=== PATIENT | male | born 1995 | race Caucasian/White ===

== ENCOUNTER 2017-12-06 21:40 | Emergency (ER) | payer OTHER ==
[2017-12-06] MEDS: PENICILLIN V POTASSIUM 500 MG TAB PO (23:04)
== END 2017-12-06 23:07 | disposition home or self-care (01) ==
LOC: M ED 21:40
DX: J02.9 Acute pharyngitis, unspecified (principal); Z72.0 Tobacco use
CPT/HCPCS: 87880

== ENCOUNTER 2018-07-16 13:47 | Emergency (ER) | payer OTHER ==
[~2018-07-16] VITALS: Ht 170.2 cm; Wt 70.8 kg
[~2018-07-16 13:47] MED LIST: PENI500T PO
--- NOTE | 2018-07-16 14:20 | REP ---
CT cervical spine without contrast HISTORY: Neck pain COMPARISON: None There is no acute fracture or subluxation. There is no disc bulge or herniation. The spinal canal and neural foramina are patent. The intervertebral discs and vertebral bodies are normal in height. IMPRESSION: There is no acute fracture or subluxation. Electronically Signed by Getachew Martino MD 07/16/2018 02:10 P
[2018-07-16] MEDS ORDERED: KETOROLAC 60 MG/2 ML VIAL (J1885) IM ONE (14:45)
[2018-07-16] MEDS ORDERED: CYCLOBENZAPRINE 10 MG TAB PO ONE (14:45)
--- NOTE | 2018-07-16 14:45 | REP ---
LEFT SHOULDER, THREE VIEWS: HISTORY: Pain. There is no acute fracture or dislocation. The joint spaces are normal in appearance. IMPRESSION: There is no acute fracture or dislocation. Electronically Signed by Getachew Martino MD 07/16/2018 02:51 P
[2018-07-16] MEDS ORDERED: NAPR-885 PO (14:53)
[2018-07-16] MEDS ORDERED: ROBA500T PO (14:54)
[2018-07-16 15:00] VITALS: BP 121/74
== END 2018-07-16 15:07 | disposition home or self-care (01) ==
LOC: M ED 13:47
DX: S49.92XA Unspecified injury of left shoulder and upper arm, initial encounter (principal); V43.53XA Car driver injured in collision with pick-up truck in traffic accident, initial encounter; Y92.410 Unspecified street and highway as the place of occurrence of the external cause; Y93.9 Activity, unspecified; Y99.9 Unspecified external cause status
CPT/HCPCS: 72125; 73030; 96372; 99283; J1885

== ENCOUNTER 2018-07-30 03:20 | Emergency (ER) | payer OTHER ==
[~2018-07-30] VITALS: Ht 170.2 cm; Wt 68.2 kg
[2018-07-30 03:20] VITALS: BP 133/70
[~2018-07-30 03:20] MED LIST changes: +NAPR-885 PO; +ROBA500T PO
[2018-07-30] MEDS ORDERED: LORazepam 0.5 MG TAB PO STA (03:56)
[2018-07-30 04:41] LABS: BASO % 0.2 % (0.0-1.0); EOS % 0.3 % (0.0-3.0); HEMATOCRIT 43.4 % (42.0-52.0); HEMOGLOBIN 14.6 g/dl (13.5-17.5); LYMPH # 1.2 10^3/uL (1.5-6.5); LYMPH % 10.2 % (24.0-44.0); MEAN CORPUSCULAR HEMOGLOBIN 29.1 pg (27.0-33.0); MEAN CORPUSCULAR HGB CONC 33.6 g/dl (32.0-36.5); MEAN CORPUSCULAR VOLUME 86.5 fl (80.0-96.0); MONO # 1.2 10^3/uL (0.0-0.8); MONO % 10.1 % (0.0-5.0); NEUTROPHILS # 9.1 10^3/uL (1.8-7.7); PLATELET COUNT, AUTOMATED 198 10^3/uL (150-450); RED BLOOD COUNT 5.02 10^6/uL (4.30-6.10); WHITE BLOOD COUNT 11.5 10^3/uL (4.0-10.0)
[2018-07-30 04:46] LABS: BLOOD UREA NITROGEN 14 MG/DL (7-18); CALCIUM LEVEL 8.7 MG/DL (8.5-10.1); CARBON DIOXIDE LEVEL 27 MEQ/L (21-32); CHLORIDE LEVEL 104 MEQ/L (98-107); CREATININE FOR GFR 1.05 MG/DL (0.70-1.30); GLUCOSE, FASTING 102 MG/DL (70-100); SODIUM LEVEL 141 MEQ/L (136-145)
--- NOTE | 2018-07-30 05:03 | REPVR ---
EXAM: XR Chest, 2 Views EXAM DATE/TIME: 07/30/18 (4:01am) CLINICAL HISTORY: 22 year old male with chest pain TECHNIQUE: XR of the chest, 2 views COMPARISON: No relevant prior studies available FINDINGS: Lungs: Unremarkable. No consolidation. Pleural space: Unremarkable. No pleural effusions. No pneumothorax. Heart/Mediastinum: Unremarkable. No cardiomegaly. Bones/joints: Unremarkable. IMPRESSION: No acute findings. Clear lung hernandez. Electronically signed by: Sussy Silva On 07/30/2018 05:03:01 AM
--- NOTE | 2018-07-31 10:30 | ECGEPIP ---
Stationary ECG Study [facility] - ED Test Date: 2018-07-30 Pat Name: VIDHYA OTTO Department: Room: - Gender: M Patient Registration Manager: : 1995 Requested By: DINORA Yen Order Number: [id number] Reading MD: Dariana Heart Measurements Intervals [place] Rate: 97 P: 40 [place]: 181 QRS: 15 QRSD: 97 T: 36 QT: 306 QTc: 389 Interpretive Statements SINUS RHYTHM POSSIBLE RIGHT VENTRICULAR CONDUCTION DELAY NONSPECIFIC T-WAVE ABNORMALITY NO PRIOR FOR COMPARISON Electronically Signed On 07-31-2018 10:30:41 EST by Dariana Heart
== END 2018-07-30 06:29 | disposition home or self-care (01) ==
LOC: M ED 03:20
DX: F41.1 Generalized anxiety disorder (principal); Z87.891 Personal history of nicotine dependence

== ENCOUNTER 2018-08-16 23:22 | Observation (INO) | payer OTHER ==
[~2018-08-16] VITALS: Ht 170.2 cm; Wt 67.6 kg
[2018-08-16] MEDS ORDERED: AMPICILLIN SOD/SULBACTAM SOD 3 GM in D5W MINI-BAG PLUS 100 ML IV ONE (23:45)
[2018-08-16] MEDS ORDERED: MORPHINE 10 MG/ML 1ML VIAL (J2270) IV ONE (23:45)
[2018-08-16] MEDS ORDERED: NS 1,000 ML IV ONE (23:45)
[2018-08-16] MEDS ORDERED: METOCLOPRAMIDE INJ 10MG/2ML VIAL (J2765) IV ONE (23:45)
[2018-08-17] MEDS ORDERED: ISOVUE-370 76% 100ML VIAL (Q9967) As Ordered ONE (00:08)
[2018-08-17 00:14] LABS: HEMATOCRIT 41.8 % (42.0-52.0); HEMOGLOBIN 14.1 g/dl (13.5-17.5); MEAN CORPUSCULAR HEMOGLOBIN 29.4 pg (27.0-33.0); MEAN CORPUSCULAR HGB CONC 33.7 g/dl (32.0-36.5); MEAN CORPUSCULAR VOLUME 87.3 fl (80.0-96.0); PLATELET COUNT, AUTOMATED 312 10^3/uL (150-450); RED BLOOD COUNT 4.79 10^6/uL (4.30-6.10)
[2018-08-17 00:18] LABS: BLOOD UREA NITROGEN 12 MG/DL (7-18); CALCIUM LEVEL 8.9 MG/DL (8.5-10.1); CARBON DIOXIDE LEVEL 29 MEQ/L (21-32); CHLORIDE LEVEL 107 MEQ/L (98-107); CREATININE FOR GFR 0.81 MG/DL (0.70-1.30); GLUCOSE, FASTING 85 MG/DL (70-100); POTASSIUM SERUM 4.2 MEQ/L (3.5-5.1); SODIUM LEVEL 142 MEQ/L (136-145)
[2018-08-17 00:43] LABS: ATYPICAL LYMPH 7 % (0-5); BASOPHILS 1 % (0-4); LYMPHOCYTES 29 % (16-52); MONOCYTES 8 % (0-8); NEUTROPHILS 55 % (35-75)
[2018-08-17 00:44] LABS: PLATELET ESTIMATE NORMAL (NORMAL)
[2018-08-17] MEDS ORDERED: dexameTHASONE 20 MG/5 ML VIAL (J1100) IV ONE (00:45)
--- NOTE | 2018-08-17 00:56 | REPVR ---
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 All CT scans at this facility use at least one of these dose optimization techniques: automated exposure control; mA and/or kV adjustment per patient size (includes targeted exams where dose is matched to clinical indication); or iterative reconstruction. Coronal and sagittal reformatted images were created and reviewed. CONTRAST: 75 ml of iso 370 administered intravenously. COMPARISON: CT Spine,cervical w/o contrast 07/16/2018 1:56 PM FINDINGS: Sinuses: Bilateral maxillary sinus mucosal thickening. Nasopharynx: Prominence of the adenoids. Oropharynx: Enlarged right tonsil with irregular low attenuation area centrally in toward the lateral aspect consistent with tonsillar abscess measuring approximately 2.2 x 1.4 x 2.3 cm. The epiglottis is normal. Larynx: There is some caudal edema to the level of the epiglottis, however, the piriform sinuses are adequately symmetric. Submandibular/Parotid glands: Normal. Glands are normal in size. Thyroid: Normal. No enlarged or calcified nodules. Lymph nodes: Normal. No lymphadenopathy. Lungs: Normal as visualized. Vasculature: No acute findings. Bones/joints: Normal. No acute fracture. Soft tissues: Metallic foreign body in the lateral left upper lip. IMPRESSION: 1. Enlarged right tonsil with tonsillar abscess along the posterolateral aspect measuring 2.2 x 1.4 x 2.3 cm which is new since 07/16/2018. 2. Enlarged adenoids which are increased since the prior study. 3. Metallic foreign body in the left upper lip. 4. Bilateral maxillary sinus disease. Electronically signed by: Jese Gaitan On 08/17/2018 00:55:56 AM
[2018-08-17] MEDS ORDERED: MORPHINE 2 MG/ML 1ML SYRINGE (J2270) IV ONE (01:00)
[2018-08-17] MEDS ORDERED: LIDOCAINE W/EPINEPHRINE 1% 20ML VIAL SC ONE (01:15)
[2018-08-17] MEDS ORDERED: APAP325T4 PO (02:22)
[2018-08-17] MEDS ORDERED: IBUP80TA PO (02:22)
[2018-08-17] MEDS: LR 1,000 ML IV SCH ×2 (03:30→17:38)
[2018-08-17 03:35] VITALS: BP 150/72
[2018-08-17] MEDS ORDERED: ACETAMINOPHEN TAB 650MG DOSE (2X325MG) PO PRN (05:00)
[2018-08-17] MEDS: AMPICILLIN SOD/SULBACTAM SOD 3 GM in D5W MINI-BAG PLUS 100 ML IV SCH ×4 (05:52→23:48)
[2018-08-17 08:00] VITALS: BP 124/61
[2018-08-17] MEDS: HYDROcodone/APAP LIQUID 7.5-325MG 15ML UDC (LORTAB ELIXIR) PO PRN ×3 (09:20→23:50)
[2018-08-17 12:00] VITALS: BP 128/70
[2018-08-17] MEDS ORDERED: dexameTHASONE 20 MG/5 ML VIAL (J1100) IV SCH (12:00)
[2018-08-17 16:00] VITALS: BP 128/66
[2018-08-17 20:00] VITALS: BP 135/63
[2018-08-18] VITALS: BP 129/65
[2018-08-18 04:00] VITALS: BP 108/55
[2018-08-18] MEDS: AMPICILLIN SOD/SULBACTAM SOD 3 GM in D5W MINI-BAG PLUS 100 ML IV SCH (06:45)
[2018-08-18 07:14] LABS: BASO % 0.1 % (0.0-1.0); HEMATOCRIT 36.3 % (42.0-52.0); HEMOGLOBIN 12.4 g/dl (13.5-17.5); LYMPH # 3.3 10^3/uL (1.5-6.5); LYMPH % 33.1 % (24.0-44.0); MEAN CORPUSCULAR HEMOGLOBIN 29.3 pg (27.0-33.0); MEAN CORPUSCULAR HGB CONC 34.2 g/dl (32.0-36.5); MEAN CORPUSCULAR VOLUME 85.8 fl (80.0-96.0); MONO % 10.1 % (0.0-5.0); NEUTROPHILS # 5.7 10^3/uL (1.8-7.7); NEUTROPHILS % 56.3 % (36.0-66.0); PLATELET COUNT, AUTOMATED 331 10^3/uL (150-450); RED BLOOD COUNT 4.23 10^6/uL (4.30-6.10)
[2018-08-18 08:11] VITALS: BP 107/53
[2018-08-18] MEDS: HYDROcodone/APAP LIQUID 7.5-325MG 15ML UDC (LORTAB ELIXIR) PO PRN (08:15)
--- NOTE | 2018-08-19 14:17 | IPN ---
DATE OF SERVICE: 08/18/2018 Subjectively, the patient is overall doing better. He is able to swallow and eat. He is handling his own secretions. Yesterday, he had incision and drainage to the right peritonsillar abscess under local in our office. He was on Unasyn and received Decadron. Swelling has gone down significantly compared to yesterday. OBJECTIVE FINDINGS: Temperature is 98.5 degrees Fahrenheit. The patient is able to open up his mouth wide. The incision and drainage site is healing nicely. No erythema around the site. Tonsil is much less inflamed compared to yesterday. Uvula is back to midline. There is much less exudate on the left tonsil, as well. White count is 10.0, hemoglobin is 12.4, hematocrit is 36.3. IMPRESSION: His right peritonsillar abscess is status post incision and drainage and is significantly improved. PLAN: This patient has been given prescriptions for the generic Lortab Elixir, which he had obtained yesterday. Also, for Augmentin 875 one twice a day for 10 days. He has been advised to consider having a yogurt or a lactobacillus capsule to try and prevent diarrhea. He has also been given a prescription for viscous lidocaine. He has also been given a followup appointment for our office for next week. At this point, he will be discharged, and he will followup with the previous appointment given to him by our office. This patient was observed for 24 hours short stay.
== END 2018-08-18 09:50 | disposition home or self-care (01) ==
LOC: M ED 23:22 → M ED INP 23:24 → INTOOBSV 08-17 01:40 → M ED INP 08-17 01:40 → UNDOADMOB 08-17 01:40 → M ED INP 08-17 03:24 → M PED 08-17 03:24 → UNDODISOB 08-18 09:50
PROVIDERS: ADMIT Otolaryngology; ATTEND Otolaryngology
DX: J36 Peritonsillar abscess (principal)
CPT/HCPCS: 36415; 70491; 80048; 85025; 87040; 87070; 87075; 87076; 87077; 87205; 87880; 96361; 96365; 96366; 96372; 96375; 96376; 99284; J1100; J2270; J2765; Q9967

== ENCOUNTER 2018-09-25 05:50 | Day surgery (SDC) | payer OTHER ==
[~2018-09-25] VITALS: Ht 172.7 cm; Wt 70.7 kg
[~2018-09-25 05:50] MED LIST changes: +APAP325T4 PO; +IBUP80TA PO
[2018-09-25] MEDS ORDERED: BUPIVACAINE HCL 0.25% 10 ML VIAL As Ordered ONE (06:31)
[2018-09-25] MEDS ORDERED: LIDOCAINE 1% MDV 20ML VIAL As Ordered ONE (06:32)
[2018-09-25] MEDS ORDERED: LIDOCAINE 2% INJ 100 MG/5 ML SDV (FOR ANES.) As Ordered ONE (07:14)
[2018-09-25] MEDS ORDERED: fentaNYL 250 MCG/5 ML INJECTION (J3010) As Ordered ONE (07:14)
[2018-09-25] MEDS ORDERED: MIDAZOLAM INJ 2 MG/2 ML VIAL (J2250) As Ordered ONE (07:14)
[2018-09-25] MEDS ORDERED: PROPOFOL 200 MG/20 ML VIAL As Ordered ONE (07:14)
[2018-09-25] MEDS ORDERED: ROCURONIUM BROMIDE 50 MG/5 ML VIAL As Ordered ONE (07:14)
[2018-09-25] MEDS ORDERED: dexameTHASONE 4 MG/ML 1ML VIAL (J1100) As Ordered ONE (07:38)
[2018-09-25] MEDS ORDERED: LR 1,000 ML IV ONE (07:45)
[2018-09-25] MEDS ORDERED: KETOROLAC 60 MG/2 ML VIAL (J1885) As Ordered ONE (07:49)
[2018-09-25] MEDS ORDERED: SUGAMMADEX SODIUM 500 MG/5 ML VIAL (BRIDION) As Ordered ONE (07:49)
[2018-09-25] MEDS ORDERED: ONDANSETRON 4MG/2ML VIAL (J2405) As Ordered ONE (07:49)
[2018-09-25] MEDS ORDERED: PERCOCET 5MG/325MG TAB As Ordered ONE (08:31)
[2018-09-25] MEDS ORDERED: fentaNYL 100 MCG/2 ML INJECTION (J3010) As Ordered ONE (08:31)
[2018-09-25] MEDS ORDERED: ONDANSETRON 4MG/2ML VIAL (J2405) IV PRN (09:00)
[2018-09-25] MEDS ORDERED: fentaNYL 100 MCG/2 ML INJECTION (J3010) IV PRN (09:00)
[2018-09-25] MEDS ORDERED: LR 1,000 ML IV SCH (09:00)
[2018-09-25] MEDS ORDERED: LIDOCAINE VISCOUS 2% SOLN 15ML UDC PO PRN (09:00)
[2018-09-25] MEDS ORDERED: PERCOCET 5MG/325MG TAB PO PRN (09:00)
[2018-09-25] MEDS ORDERED: METOCLOPRAMIDE INJ 10MG/2ML VIAL (J2765) IV PRN (09:00)
[2018-09-25 09:35] VITALS: BP 127/62
--- NOTE | 2018-09-25 11:38 | RO ---
DATE OF OPERATION: 09/25/2018 PREOPERATIVE DIAGNOSIS: History of right peritonsillar abscess and tonsil calculus. POSTOPERATIVE DIAGNOSIS: History of right peritonsillar abscess and tonsil calculus. OPERATION PERFORMED: Coblation tonsillectomy. SURGEON: Gerber Hernandez Jr., MD STITCHER UTILITY: ANESTHESIA: General via endotracheal tube by Fabian Alvarado, nurse photographic press screwmaker and Dr. Silva. INDICATIONS FOR PROCEDURE: Patient with a history of peritonsillar abscess. PROCEDURE IN DETAIL: The patient in supine position after being induced, intubated, prepped and draped in usual fashion, placed in the [place] position. A red rubber Kim was placed in the left nasal cavity and brought out through the oral cavity after a Vladimir Hemphill grooved tongue blade retractor was placed. Once this was done, the left tonsil was grasped with a curved tonsillar Allis clamp, dissected out of the tonsillar fossa with a Coblator EVAC-70 wand with settings at 7 Coblate, 3 coag. This was dissected without difficulty although there did appear to be some scar tissue present. There was no significant bleeding. After this was done, in a similar fashion the right side was also done. There was definitely scar tissue in the peritonsillar abscess site, but the tonsil was able to be dissected out of the fossa without any significant issues. Once this was done, about 2.5 mL of 1% lidocaine to 0.5% bupivacaine without lidocaine was placed in the tonsillar fossa with a 27 gauge needle for postop pain. The patient tolerated this well. After this was done, attention then was drawn to releasing the retractors and irritating the tonsillar fossa multiple times and was cauterized as necessary. Cold saline was then also used to irrigate it multiple times until bleeding stopped. Retractors were released and then reinspected. Spot coagulation was done as necessary. The patient tolerated the procedure well. Estimated blood loss was less than 1 mL. There were no problems. No complications. TASHI
== END 2018-09-25 09:40 | disposition home or self-care (01) ==
LOC: M SDC 05:50
PROVIDERS: ATTEND Otolaryngology
DX: J36 Peritonsillar abscess (principal); G47.30 Sleep apnea, unspecified; F17.210 Nicotine dependence, cigarettes, uncomplicated
CPT/HCPCS: 42826; 88302; J1100; J1885; J2250; J2405; J3010

== ENCOUNTER 2018-10-01 12:36 | Emergency (ER) | payer OTHER ==
[~2018-10-01] VITALS: Ht 172.7 cm; Wt 65.1 kg
[2018-10-01] MEDS ORDERED: ACETAM (12:56)
[2018-10-01] MEDS ORDERED: HYDROCOD (12:56)
[2018-10-01] MEDS ORDERED: PERI0.126 PO (13:43)
[2018-10-01] MEDS ORDERED: MEDR4PAK PO (13:43)
[2018-10-01] MEDS ORDERED: dexameTHASONE 20 MG/5 ML VIAL (J1100) IM ONE (13:45)
[2018-10-01] MEDS ORDERED: HYDR1SOL PO (13:46)
[2018-10-01] MEDS ORDERED: dexameTHASONE 4 MG/ML 1ML VIAL (J1100) As Ordered ONE (13:52)
[2018-10-01 14:01] VITALS: BP 128/68
== END 2018-10-01 14:03 | disposition home or self-care (01) ==
LOC: M ED 12:36
DX: G89.18 Other acute postprocedural pain (principal); R60.9 Edema, unspecified; F41.9 Anxiety disorder, unspecified; Z72.0 Tobacco use
CPT/HCPCS: 96372; 99283; J1100

== ENCOUNTER 2018-11-09 11:34 | Emergency (ER) | payer OTHER ==
[~2018-11-09] VITALS: Ht 172.7 cm; Wt 65.9 kg
[~2018-11-09 11:34] MED LIST changes: +ACETAM; +HYDR1SOL PO; +HYDROCOD; +MEDR4PAK PO; +PERI0.126 PO
[2018-11-09 11:59] LABS: BASO % 0.2 % (0.0-1.0); EOS # 0.9 10^3/uL (0.0-0.50); EOS % 13.1 % (0.0-3.0); HEMATOCRIT 47.4 % (42.0-52.0); HEMOGLOBIN 16.2 g/dl (13.5-17.5); LYMPH # 2.2 10^3/uL (1.5-6.5); LYMPH % 33.7 % (24.0-44.0); MEAN CORPUSCULAR HEMOGLOBIN 29.8 pg (27.0-33.0); MEAN CORPUSCULAR HGB CONC 34.2 g/dl (32.0-36.5); MEAN CORPUSCULAR VOLUME 87.1 fl (80.0-96.0); MONO # 0.5 10^3/uL (0.0-0.8); MONO % 7.3 % (0.0-5.0); NEUTROPHILS % 45.4 % (36.0-66.0); PLATELET COUNT, AUTOMATED 273 10^3/uL (150-450); RED BLOOD COUNT 5.44 10^6/uL (4.30-6.10); WHITE BLOOD COUNT 6.6 10^3/uL (4.0-10.0)
[2018-11-09] MEDS ORDERED: NS 1,000 ML IV ONE (12:15)
[2018-11-09 12:34] LABS: ALBUMIN 4.4 GM/DL (3.2-5.2); ALT/SGPT 33 U/L (12-78); BILIRUBIN,DIRECT < 0.1 MG/DL (0.0-0.2); BILIRUBIN,TOTAL 0.5 MG/DL (0.2-1.0); BLOOD UREA NITROGEN 17 MG/DL (7-18); CALCIUM LEVEL 9.4 MG/DL (8.5-10.1); CARBON DIOXIDE LEVEL 29 MEQ/L (21-32); CHLORIDE LEVEL 106 MEQ/L (98-107); CREATININE FOR GFR 0.91 MG/DL (0.70-1.30); GLUCOSE, FASTING 91 MG/DL (70-100); LIPASE 91 U/L (73-393); POTASSIUM SERUM 4.1 MEQ/L (3.5-5.1); SODIUM LEVEL 139 MEQ/L (136-145); TOTAL PROTEIN 7.2 GM/DL (6.4-8.2)
[2018-11-09] MEDS: GASTROGRAFIN SOLUTION 30ML PO SCH ×2 (13:27→14:00)
[2018-11-09] MEDS ORDERED: ISOVUE-370 76% 100ML VIAL (Q9967) As Ordered ONE (14:48)
--- NOTE | 2018-11-09 16:02 | REP ---
CT ABDOMEN AND PELVIS WITH ORAL AND IV CONTRAST: TECHNIQUE: Axial contrast enhanced images from the lung bases to the pubic symphysis using 100 mL Isovue 370 intravenous contrast material with multiplanar reformations. The visualized lung bases demonstrate no infiltrate. Liver, gallbladder spleen, adrenals, pancreas and kidneys appear unremarkable. There is no hydronephrosis bilaterally. I see no abdominal aortic aneurysm. No significant adenopathy is seen. There is no free or free fluid. There is no bowel wall thickening. There is no evidence of appendicitis. No pelvic mass is seen. Urinary bladder is mildly distended and grossly unremarkable. IMPRESSION: No evidence of acute appendicitis or other acute finding. Electronically Signed by Mic Concepcion MD 11/10/2018 03:14 P
[2018-11-09] MEDS ORDERED: IBUPROFEN 800 MG TAB PO ONE (16:30)
[2018-11-09 17:20] VITALS: BP 124/61
== END 2018-11-09 17:22 | disposition home or self-care (01) ==
LOC: M ED 11:34
DX: K92.1 Melena (principal); F41.9 Anxiety disorder, unspecified; M54.9 Dorsalgia, unspecified; Z79.899 Other long term (current) drug therapy; F17.200 Nicotine dependence, unspecified, uncomplicated
CPT/HCPCS: 36415; 74177; 80048; 80076; 81001; 83630; 83690; 85025; 87507; 96360; 96361; 99284; Q9963; Q9967

== ENCOUNTER 2019-10-21 07:48 | Emergency (ER) | payer OTHER ==
[~2019-10-21] VITALS: Ht 172.7 cm; Wt 73.8 kg
[2019-10-21] MEDS ORDERED: NS 1,000 ML IV ONE (08:15)
[2019-10-21] MEDS ORDERED: ONDANSETRON 4MG/2ML VIAL (J2405 PER 1MG) IV ONE (08:15)
[2019-10-21 08:29] LABS: BASO % 0.3 % (0.0-1.0); EOS # 0.6 10^3/uL (0.0-0.5); EOS % 5.6 % (0.0-3.0); HEMATOCRIT 52.6 % (42.0-52.0); HEMOGLOBIN 18.1 g/dl (13.5-17.5); LYMPH # 1.5 10^3/uL (1.5-5.0); MEAN CORPUSCULAR HEMOGLOBIN 29.6 pg (27.0-33.0); MEAN CORPUSCULAR HGB CONC 34.4 g/dl (32.0-36.5); MEAN CORPUSCULAR VOLUME 86.1 fl (80.0-96.0); MONO % 8.6 % (0.0-5.0); NEUTROPHILS # 8.2 10^3/uL (1.5-8.5); NEUTROPHILS % 72.1 % (36.0-66.0); PLATELET COUNT, AUTOMATED 326 10^3/uL (150-450); RED BLOOD COUNT 6.11 10^6/uL (4.30-6.10); WHITE BLOOD COUNT 11.3 10^3/uL (4.0-10.0)
[2019-10-21 09:06] LABS: BLOOD UREA NITROGEN 16 MG/DL (7-18); CALCIUM LEVEL 9.8 MG/DL (8.5-10.1); CARBON DIOXIDE LEVEL 22 MEQ/L (21-32); CHLORIDE LEVEL 108 MEQ/L (98-107); CREATININE FOR GFR 1.06 MG/DL (0.70-1.30); GLOMERULAR FILTRATION RATE > 60.0 (>60); GLUCOSE, FASTING 103 MG/DL (70-100); POTASSIUM SERUM 3.8 MEQ/L (3.5-5.1); SODIUM LEVEL 138 MEQ/L (136-145)
[2019-10-21] MEDS ORDERED: ONDA4TAB6 PO (09:33)
[2019-10-21 09:38] VITALS: BP 127/71
== END 2019-10-21 09:50 | disposition home or self-care (01) ==
LOC: M ED 07:48
DX: R11.2 Nausea with vomiting, unspecified (principal); R19.7 Diarrhea, unspecified; F17.210 Nicotine dependence, cigarettes, uncomplicated
CPT/HCPCS: 80048; 85025; 96361; 96374; 99284; J2405